=== PATIENT | male | born 1960 | race Caucasian/White ===

== ENCOUNTER 2017-08-27 20:41 | Emergency (ER) | payer OTHER ==
[~2017-08-27] VITALS: Ht 172.7 cm; Wt 61.3 kg
[2017-08-27 21:05] VITALS: BP 144/91; PULSE 64; RESP 16; TEMP 97.9; O2SAT 98
[2017-08-27] MEDS ORDERED: KETO10 PO (21:35)
[2017-08-27] MEDS ORDERED: TAMS5CAP PO (21:35)
[2017-08-27 21:49] LABS: BLOOD, URINE LARGE (NEG); GLUCOSE,URINE NEG (NEG); KETONE, URINE NEG (NEG); NITRITE,URINE NEG (NEG); PH, URINE 5.5 (5.0-8.5); URINE LEUKOCYTE ESTERASE TRACE (NEG)
[2017-08-27 21:54] LABS: BILIRUBIN, URINE NEG (NEG); CHLORIDE 107 MEQ/L (98-107); SODIUM (NA) 138 MEQ/L (136-145); URINE COLOR YELLOW (YELLW/STRAW)
[2017-08-27 21:55] LABS: MUCUS URINE FEW /lpf (OCC)
[2017-08-27 21:56] LABS: SQUAMOUS EPITHELIAL CELL URINE 0-5 /hpf (0-5); WHITE BLOOD CELL CLUMPS RARE
[2017-08-27 21:57] LABS: BICARBONATE 24.4 MEQ/L (21.0-32.0); CALCIUM 9.1 MG/DL (8.5-10.1); GLUCOSE,RANDOM 118 MG/DL (74-106)
[2017-08-27 21:58] LABS: BLOOD UREA NITROGEN 16 MG/DL (7-18)
[2017-08-27 22:00] LABS: ALT (GPT) 21 U/L (12-78)
[2017-08-27 22:01] LABS: AST (GOT) 28 U/L (15-37); GLOMERULAR FILTRATION RATE 57 ML/MIN (>89)
[2017-08-27 22:02] LABS: TOTAL BILIRUBIN ADULT 0.8 MG/DL (0.2-1.0); TOTAL PROTEIN 8.6 GM/DL (6.4-8.2)
[2017-08-27 22:03] LABS: ALKALINE PHOSPHATASE 85 U/L (45-117)
[2017-08-27 22:10] LABS: AUTOMATED NEUTROPHIL # 9.1 TH/MM3 (1.8-7.7); BASOPHIL # 0.1 TH/MM3 (0-0.2); BASOPHIL % 0.8 % (0.0-2.0); EOSINOPHIL # 0.1 TH/MM3 (0-0.4); EOSINOPHIL % 0.9 % (0.0-4.0); HEMATOCRIT 41.2 % (39.0-51.0); HEMOGLOBIN 14.3 GM/DL (13.0-17.0); LYMPH % 14.8 % (9.0-44.0); LYMPHOCYTE # 1.8 TH/MM3 (1.0-4.8); MEAN CELL VOLUME 93.4 FL (80.0-100.0); MEAN CORPUSCULAR HEMOGLOBIN 32.5 PG (27.0-34.0); MEAN CORPUSCULAR HGB CONC 34.8 % (32.0-36.0); MEAN PLATELET VOLUME 8.5 FL (7.0-11.0); MONOCYTE # 0.8 TH/MM3 (0-0.9); NEUT % 76.5 % (16.0-70.0); PLATELET COUNT 237 TH/MM3 (150-450); RED BLOOD COUNT 4.41 MIL/MM3 (4.50-5.90); RED CELL DISTRIBUTION WIDTH 12.3 % (11.6-17.2); WHITE BLOOD COUNT 11.9 TH/MM3 (4.0-11.0)
--- NOTE | 2017-08-27 22:54 | PD ---
HPI Chief Complaint: Flank/Kidney Pain Time Seen by Provider: 22:46 Travel History International Travel<30 days: No Contact w/Intl Traveler<30days: No Traveled to known affect area: No History of Present Illness HPI The patient is a 56-year-old male that has a history of kidney stones. He complains of sudden onset of right flank pain for a week. He states most of his kidney stones are on the left. He is already passed 3 kidney stones and has them in a bottle. He complains of pain of a 9/10. He does not want another CAT scan, he has had multiple CAT scans. He is also had a history of lithotripsy. He usually is good on 7.5 Percocet and needs something for nausea. He has an adequate amount of Flomax at home. He has a bottle that contains kidney stones. He states he he passed a kidney stone Thursday, Thursday , Thursday and possibly Thursday. He states his urologists and was consulted and are trying to limit his CAT scan exposure. [facility] Past Medical History Kidney Stones: Yes ?: Not Social History Alcohol Use: No Tobacco Use: No Substance Use: No Allergies-Medications (Allergen,Severity, Reaction): Coded Allergies: ibuprofen (Verified Adverse Reaction, Unknown, Bleeding, 08/27/17) Reported Meds & Prescriptions Reported Meds & Active Scripts Active Reported Ketorolac (Ketorolac Tromethamine) 10 Mg Tab 10 Mg PO Q6HR PRN Flomax (Tamsulosin HCl) 0.4 Mg Cap 0.4 Mg PO HS Review of Systems Except as stated in HPI: all other systems reviewed are Neg Physical Exam Narrative GENERAL: The patient is alert, oriented 3 in moderate to severe distress with his right flank pain. His vital signs show blood pressure 144/91 but otherwise normal. SKIN: Focused skin assessment warm/dry. HEAD: Atraumatic. Normocephalic. EYES: Pupils equal and round. No scleral icterus. No injection or drainage. ENT: No nasal bleeding or discharge. Mucous membranes pink and moist. NECK: Trachea midline. No JVD. CARDIOVASCULAR: Regular rate and rhythm. No murmur appreciated. RESPIRATORY: No accessory muscle use. Clear to auscultation. Breath sounds equal bilaterally. GASTROINTESTINAL: Abdomen soft, non-tender, nondistended. Hepatic and splenic margins not palpable. There is minimal right flank tenderness present. No guarding or rebound is present. MUSCULOSKELETAL: No obvious deformities. No clubbing. No cyanosis. No edema. NEUROLOGICAL: Awake and alert. No obvious cranial nerve deficits. Motor grossly within normal limits. Normal speech. PSYCHIATRIC: Appropriate mood and affect; insight and judgment normal. Data Data Last Documented VS Vital Signs Date Time Temp Pulse Resp B/P (MAP) Pulse Ox O2 Delivery O2 Flow Rate FiO2 08/27/17 21:05 97.9 64 16 144/91 (108) 98 Orders Orders Complete Blood Count With Diff (08/27/17 21:32) Comprehensive Metabolic Panel (08/27/17 21:32) Urinalysis - C+S If Indicated (08/27/17 21:32) Urine Culture (08/27/17 21:30) Tamsulosin (Flomax) (08/27/17 23:00) Hydromorphone Pf Inj (Dilaudid Pf Inj) (08/27/17 23:00) Ondansetron Inj (Zofran Inj) (08/27/17 23:00) Labs Laboratory Tests Test 08/27/17 21:30 White Blood Count 11.9 TH/MM3 Red Blood Count 4.41 MIL/MM3 Hemoglobin 14.3 GM/DL Hematocrit 41.2 % Mean Corpuscular Volume 93.4 FL Mean Corpuscular Hemoglobin 32.5 PG Mean Corpuscular Hemoglobin Concent 34.8 % Red Cell Distribution Width 12.3 % Platelet Count 237 TH/MM3 Mean Platelet Volume 8.5 FL Neutrophils (%) (Auto) 76.5 % Lymphocytes (%) (Auto) 14.8 % Monocytes (%) (Auto) 7.0 % Eosinophils (%) (Auto) 0.9 % Basophils (%) (Auto) 0.8 % Neutrophils # (Auto) 9.1 TH/MM3 Lymphocytes # (Auto) 1.8 TH/MM3 Monocytes # (Auto) 0.8 TH/MM3 Eosinophils # (Auto) 0.1 TH/MM3 Basophils # (Auto) 0.1 TH/MM3 CBC Comment DIFF FINAL Differential Comment Urine Color YELLOW Urine Turbidity CLOUDY Urine pH 5.5 Urine Specific [place] 1.020 Urine Protein 100 mg/dL Urine Glucose (UA) NEG mg/dL Urine Ketones NEG mg/dL Urine Occult Blood LARGE Urine Nitrite NEG Urine Bilirubin NEG Urine Leukocyte Esterase TRACE Urine RBC 50-99 /hpf Urine WBC 6-8 /hpf Urine WBC Clumps RARE Urine Squamous Epithelial Cells 0-5 /hpf Urine Mucus FEW /lpf Microscopic Urinalysis Comment CULTURE INDICATED Blood Urea Nitrogen 16 MG/DL Creatinine 1.30 MG/DL Random Glucose 118 MG/DL Total Protein 8.6 GM/DL Albumin 4.0 GM/DL Calcium Level 9.1 MG/DL Alkaline Phosphatase 85 U/L Aspartate Amino Transf (AST/SGOT) 28 U/L Alanine Aminotransferase (ALT/SGPT) 21 U/L Total Bilirubin 0.8 MG/DL Sodium Level 138 MEQ/L Potassium Level 3.4 MEQ/L Chloride Level 107 MEQ/L Carbon Dioxide Level 24.4 MEQ/L Anion Gap 7 MEQ/L Estimat Glomerular Filtration Rate 57 ML/MIN MDM Medical Decision Making Medical Screen Exam Complete: Yes Emergency Medical Condition: Yes Medical Record Reviewed: Yes Interpretation(s) The urine shows a cloudy turbidity with large blood, trace leukocyte esterase and 6-8 white cells with rare white cell clumping's and 50-99 red cells. The complete metabolic profile shows a GFR 57, total protein 8.6 with potassium 3.4 but is otherwise normal. The CBC is normal except for white count 11,900. Differential Diagnosis Ureteral stone, urinary tract infection, ureteral scarring, kinked ureter Narrative Course It is now 1143 and the patient feels much better. He is wanting to go home. He will be given prescriptions for Percocet 7.5 and Compazine. He will be to increase his liquid intake and follow-up with urology. Diagnosis Primary Impression: Right ureteral calculus Additional Instructions: As we discussed, follow-up with urology. The Percocet is one tablet every 4-6 hours as needed for pain and the Compazine is one tablet every 6 hours as needed for nausea. Med/Other Pt SpecificInfo: Prescription(s) given Scripts Oxycodone-Acetaminophen (Percocet) 7.5-325 mg Tab 1 TAB PO Q6H Y for PAIN, #30 TAB 0 Refills Prov: Reji Patterson MD 08/27/17 Prochlorperazine Maleate (Prochlorperazine Maleate) 10 Mg Tab 10 MG PO Q6H Y for NAUSEA OR VOMITING, #30 TAB 0 Refills Prov: Reji Patterson MD 08/27/17 Disposition: 01 DISCHARGE HOME Condition: Stable Reji Patterson MD Aug 27, 2017 22:54
[2017-08-27] MEDS ORDERED: ONDANSETRON HCL 4 MG/2 ML VIAL IV ONE (23:00)
[2017-08-27] MEDS ORDERED: HYDROmorphone HCL PF 2 MG/ML VIAL IV PUSH ONE (23:00)
[2017-08-27] MEDS ORDERED: TAMSULOSIN HCL 0.4 MG CAP PO ONE (23:00)
[2017-08-27] MEDS ORDERED: PROC10TA PO (23:47)
[2017-08-27] MEDS ORDERED: PERC7.5T13 PO (23:47)
[2017-08-27 23:58] VITALS: BP 133/78
== END 2017-08-28 | disposition home or self-care (01) ==
LOC: PHED 20:41
DX: N20.1 Calculus of ureter (principal); Z87.442 Personal history of urinary calculi
CPT/HCPCS: 80053; 81001; 85025; 87086; 96374; 96375; 99284; J1170; J2405